=== PATIENT | female | born 1940 | race Caucasian/White ===

== ENCOUNTER 2025-01-23 12:01 | Outpatient (CLI) | payer MEDICARE, MEDICAID ==
--- NOTE | 2025-01-23 12:49 | RADIOLOGY REPORT ---
EXAM: DI CHEST,TWO VIEWS CLINICAL HISTORY: COPD COMPARISON: None TECHNIQUE: Frontal and lateral view of the chest was obtained FINDINGS: Lines and Tubes: None Lungs: No focal consolidation. Pleura: No effusion. No pneumothorax. Cardiomediastinal contours: Unremarkable. Atherosclerotic vascular calcifications of the thoracic ao rta are noted. Bones: No acute osseous abnormality. IMPRESSION: No acute cardiopulmonary disease.
== END 2025-01-23 23:59 | disposition home or self-care (01) ==
LOC: RAD 12:01
PROVIDERS: ATTEND Nurse Practitioner Family
DX: J44.9 Chronic obstructive pulmonary disease, unspecified (principal); I70.0 Atherosclerosis of aorta
CPT/HCPCS: 71046